=== PATIENT | female | born 1990 | race American Indian/Alaskan Native ===

== ENCOUNTER 2017-10-08 05:42 | Emergency (ER) | payer MEDICAID ==
[2017-10-08 07:38] VITALS: BP 145/79
[2017-10-08 08:22] LABS: Bilirubin,Urine NEG (Negative); Blood,Urine LG (Negative); Calcium Oxalate Crystals,Urine 1+; Color,Urine Yellow (Yellow); Mucus,Urine FEW /HPF; Protein,Urine <15 mg/dL mg/dL (Negative); Urobilinogen,Urine < 2.0 mg/dL (<2.0)
[2017-10-08 08:25] LABS: RBC,Urine > 182.0 /HPF (0.0-6.0)
[2017-10-08 08:25] LABS: Basophils # (Auto) 0.1 K/mm3 (0.0-0.1); Basophils % (Auto) 0.8 % (0.0-1.8); Eosinophils % (Auto) 0.5 % (0.0-4.3); Hematocrit 40.8 % (30.3-42.9); Lymphocytes # (Auto) 1.4 K/mm3 (1.2-5.4); Lymphocytes % (Auto) 17.9 % (13.4-35.0); Mean Corpuscular HGB Conc 32 % (30-34); Mean Corpuscular Hemoglobin 28 pg (28-32); Mean Corpuscular Volume 89 fl (79-97); Monocytes # (Auto) 0.4 K/mm3 (0.0-0.8); Monocytes % (Auto) 5.4 % (0.0-7.3); Platelet Count 232 K/mm3 (140-440); Red Blood Count 4.58 M/mm3 (3.65-5.03)
--- NOTE | 2017-10-08 10:37 | Emergency Department Report ---
ED Female HPI - General Chief complaint: Vaginal Bleeding Stated complaint: VAG BLEEDING; 6WKS GEST Time Seen by Provider: 10/08/17 08:42 Source: patient Mode of arrival: Ambulatory Limitations: No Limitations - History of Present Illness Initial comments: This is a 26-year-old -[place] female who presents with abdominal cramping and vaginal bleeding and/or for 2 days. Sk[facility]. On last Monday she started spotting with some mild cramping. Yesterday cramping increase and she saw a large amount of clots pass. This morning she saw a large clot on pain and decided to come in for evaluation. Patient reports pain is in lower pelvic region and lower back which is a cramping sensation. Pain is intermittent and 4-10 on pain scale. Patient denies fever, chest pain, shortness of breath, frequency, urgency, and dysuria. MD Complaint: vaginal bleeding, pelvic pain -: days(s) (2 days) Location: suprapubic Radiation: L flank, R flank Severity: mild Severity scale (0 -10): 4 Quality: cramping Consistency: intermittent Improves with: none Worsens with: none Are you Now?: Yes Last Menstrual Period: 08/22/17 EDC: 05/29/18 Associated Symptoms: vaginal bleeding, abdominal pain. denies: vaginal discharge, nausea/vomiting, fever/chills, headaches, loss of appetite, dysuria, hematuria, rash, seizure, shortness of breath, syncope, weakness - Related Data Sexually active: Yes : 1 Para: 0 A: 0 Previous Rx's Medication Instructions Recorded Last Taken Type Acetaminophen [Non-Aspirin Extra 500 mg PO Q6H PRN #20 tablet 10/08/17 Unknown Rx Strength] Allergies Allergy/AdvReac Type Severity Reaction Status Date / Time No Known Allergies Allergy Unverified 10/08/17 07:34 ED Review of Systems ROS: Stated complaint: VAG BLEEDING; 6WKS GEST Other details as noted in HPI Constitutional: denies: chills, fever Respiratory: denies: cough, shortness of breath, wheezing Cardiovascular: denies: chest pain, palpitations Gastrointestinal: abdominal pain (lower abdominal cramping). denies: nausea, vomiting, diarrhea Genitourinary: other (vaginal bleeding during ). denies: urgency, dysuria, frequency, discharge Neurological: denies: headache, weakness, numbness, paresthesias Psychiatric: denies: anxiety, depression ED Past Medical Hx - Past Medical History Previous Medical History?: No - Surgical History Past Surgical History?: No - Social History Smoking Status: Never Smoker Substance Use Type: None - Medications Home Medications: Home Medications Medication Instructions Recorded Confirmed Last Taken Type Acetaminophen [Non-Aspirin Extra 500 mg PO Q6H PRN #20 tablet 10/08/17 Unknown Rx Strength] ED Physical Exam - General Limitations: No Limitations General appearance: alert, in no apparent distress - Respiratory Respiratory exam: Present: normal lung sounds bilaterally. Absent: respiratory distress - Cardiovascular Cardiovascular Exam: Present: regular rate, normal rhythm, normal heart sounds. Absent: systolic murmur, diastolic murmur, rubs, gallop - GI/Abdominal GI/Abdominal exam: Present: soft, normal bowel sounds. Absent: distended, tenderness, guarding, rebound, rigid, organomegaly, mass, bruit - Back Exam Back exam: Present: normal inspection. Absent: CVA tenderness (R), CVA tenderness (L) - Neurological Exam Neurological exam: Present: alert, oriented X3 - Psychiatric Psychiatric exam: Present: normal affect, normal mood - Skin Skin exam: Present: warm, dry, intact, normal color. Absent: rash ED Course Vital Signs 10/08/17 07:34 Temperature 98.7 F Pulse Rate 95 H Respiratory 18 Rate Blood Pressure 145/79 O2 Sat by Pulse 100 Oximetry ED Medical Decision Making - Lab Data Result diagrams: 10/08/17 08:03 - Radiology Data Radiology results: report reviewed TRANSABDOMINAL AND TRANSVAGINAL OBSTETRICAL ULTRASOUND:10/08/17 05:42:00 CLINICAL: Positive test, pain and vaginal bleeding. FINDINGS: Transabdominal and transvaginal ultrasound demonstrated an enlarged fibroid uterus with no intrauterine gestational sac or fetus. Cervix is closed. The uterine stripe measures 9.0 mm in AP thickness. An anterior intramural fibroid in the uterine body measures 3 cm and a right intramural uterine body fibroid measures 8.9 x 7.5 x 6.6 cm. No adnexal mass or free fluid. Normal ovaries are well imaged on the transabdominal scan. The right ovary measured 4.5 x 1.4 x 3.6cm. The left ovary measured 3.6 x 1.5 x 2.8cm. IMPRESSION: No intrauterine or extrauterine identified. Suspect intrauterine AB with minimal retained products. Large uterine fibroids. - Medical Decision Making This is a 26-year-old female who presents with vaginal bleeding and abdominal cramping for 2 days. Patient is 6 weeks gestation. Patient is stable and was examined by me. Vitals normal. Obtained a type and screen, CBC, serum hCG quant , & UA. HCG elevated, urinalysis trace leukocytes and blood. OB transvaginal ultrasound obtained and read by radiologist. No intrauterine or extrauterine identified. Suspect intrauterine AB with minimal retained products. Large uterine fibroids. Review results with patient and her shortness of follow with [facility] in the next 2-3 days. No further questions noted by the patient. Discharged home in stable condition. Critical care attestation.: If time is entered above; I have spent that time in minutes in the direct care of this critically ill patient, excluding procedure time. ED Disposition Clinical Impression: Vaginal bleeding in patient at less than 20 weeks gestation, Spontaneous miscarriage Disposition: TO HOME OR SELFCARE Is pt being admited?: No Does the pt Need Aspirin: No Condition: Stable Instructions: Spontaneous Miscarriage (ED) Additional Instructions: Take Tylenol every 6 hours as needed for pain. Follow-up with [facility] in 2-3 days. Prescriptions: Acetaminophen [Non-Aspirin Extra Strength] 500 mg PO Q6H PRN #20 tablet PRN Reason: Pain Referrals: [facility] [Provider Group] - 3-5 Days [facility] [Provider Group] - 3-5 Days Time of Disposition: 11:49 Print Language: MALAGASY
--- NOTE | 2017-10-08 11:28 | Ultrasound Report ---
TRANSABDOMINAL AND TRANSVAGINAL OBSTETRICAL ULTRASOUND:10/08/17 05:42:00 CLINICAL: Positive test, pain and vaginal bleeding. FINDINGS: Transabdominal and transvaginal ultrasound demonstrated an enlarged fibroid uterus with no intrauterine gestational sac or fetus. Cervix is closed. The uterine stripe measures 9.0 mm in AP thickness. An anterior intramural fibroid in the uterine body measures 3 cm and a right intramural uterine body fibroid measures 8.9 x 7.5 x 6.6 cm. No adnexal mass or free fluid. Normal ovaries are well imaged on the transabdominal scan. The right ovary measured 4.5 x 1.4 x 3.6cm. The left ovary measured 3.6 x 1.5 x 2.8cm. IMPRESSION: No intrauterine or extrauterine identified. Suspect intrauterine AB with minimal retained products. Large uterine fibroids.
== END 2017-10-08 12:02 | disposition home or self-care (01) ==
LOC: ED 05:42
DX: O03.9 Complete or unspecified spontaneous abortion without complication (principal); Z3A.01 Less than 8 weeks gestation of pregnancy
CPT/HCPCS: 36415; 76801; 76817; 81001; 84702; 85025; 86850; 86900; 86901

== ENCOUNTER 2018-08-07 17:50 | Emergency (ER) | payer OTHER ==
[2018-08-07] MEDS ORDERED: ZOFRAN ODT PO ONE (18:04)
--- NOTE | 2018-08-07 18:05 | Emergency Department Report ---
Chief Complaint: Nausea/Vomiting/Diarrhea Stated Complaint: 7WKS /VOMITING Time Seen by Provider: 08/07/18 18:02 - HPI History of Present Illness: 06/16 S SIDE MEDICAL BUT NO MD NAUSEA/VOMITING NO BLEEDING OR DC MISCARRIAGE LAST YEAR PMH FIBROIDS RX ZOFRAN NOT VOMITING IN TRIAGE MSE COMPLETED MSE screening note: Focused history and physical exam performed. Due to findings the following was ordered: ED Disposition for MSE Condition: Stable
[2018-08-07 19:11] LABS: Hematocrit 42.6 % (30.3-42.9); Hemoglobin 14.2 gm/dl (10.1-14.3); Mean Corpuscular HGB Conc 33 % (30-34); Mean Corpuscular Volume 88 fl (79-97); Platelet Count 292 K/mm3 (140-440); Red Blood Count 4.82 M/mm3 (3.65-5.03); Red Cell Distribution Width 13.3 % (13.2-15.2)
[2018-08-07 19:15] LABS: HCG Qualitative,Urine Positive (Negative)
[2018-08-07 19:20] LABS: Bacteria,Urine 1+ /HPF (Negative); Bilirubin,Urine NEG (Negative); Blood,Urine NEG (Negative); Color,Urine Yellow (Yellow); Mucus,Urine FEW /HPF; Urobilinogen,Urine < 2.0 mg/dL (<2.0)
[2018-08-07 19:25] LABS: BUN/Creatinine Ratio 8; Blood Urea Nitrogen 4 mg/dL (7-17); Calcium 10.3 mg/dL (8.4-10.2); Hemolysis Index 9
[2018-08-07 21:27] VITALS: BP 134/115
== END 2018-08-07 22:27 | disposition left against medical advice (07) ==
LOC: ED 17:50
DX: O21.8 Other vomiting complicating pregnancy (principal); Z53.21 Procedure and treatment not carried out due to patient leaving prior to being seen by health care provider
CPT/HCPCS: 36415; 80048; 81001; 81025; 84702; 85027

== ENCOUNTER 2019-03-17 17:58 | Outpatient (CLI) | payer MEDICAID ==
[2019-03-17 18:50] VITALS: BP 116/76
== END 2019-03-17 19:00 | disposition home or self-care (01) ==
LOC: TRG 17:58
PROVIDERS: ATTEND Obstetrics & Gynecology
DX: O47.1 False labor at or after 37 completed weeks of gestation (principal); Z3A.39 39 weeks gestation of pregnancy

== ENCOUNTER 2019-03-26 14:09 | Inpatient (IN) | payer MEDICAID ==
[2019-03-26 16:28] LABS: Basophils # (Auto) 0.1 K/mm3 (0.0-0.1); Basophils % (Auto) 1.2 % (0.0-1.8); Eosinophils % (Auto) 0.3 % (0.0-4.3); Hematocrit 38.4 % (30.3-42.9); Hemoglobin 12.7 gm/dl (10.1-14.3); Lymphocytes # (Auto) 1.2 K/mm3 (1.2-5.4); Lymphocytes % (Auto) 17.5 % (13.4-35.0); Mean Corpuscular HGB Conc 33 % (30-34); Mean Corpuscular Volume 92 fl (79-97); Monocytes # (Auto) 0.5 K/mm3 (0.0-0.8); Monocytes % (Auto) 7.3 % (0.0-7.3); Red Cell Distribution Width 13.6 % (13.2-15.2)
[2019-03-26 16:35] LABS: Platelet Count 195 K/mm3 (140-440)
[2019-03-26] MEDS ORDERED: MINERAL OIL 30 ML ORAL LIQD PO PRN (17:50)
[2019-03-26] MEDS ORDERED: BUTORPHANOL 2 MG/1 ML INJ IV PRN (17:50)
[2019-03-26] MEDS ORDERED: AMPICILLIN/NS 2 GM/100 ML 2 GM/100 ML BAG IV ONE (17:50)
[2019-03-26] MEDS ORDERED: fentaNYL 100 MCG/2 ML INJ IV PRN (17:50)
[2019-03-26] MEDS ORDERED: TERBUTALINE 1 MG/1 ML INJ SUB-Q PRN (17:50)
[2019-03-26] MEDS ORDERED: ePHEDrine SULFATE 50 MG/1 ML INJ IV PRN (17:50)
[2019-03-26] MEDS ORDERED: TERBUTALINE 1 MG/1 ML INJ IVP PRN (17:50)
[2019-03-26] MEDS ORDERED: LACTATED RINGERS 1,000 ML IV SCH (18:00)
[2019-03-26] MEDS ORDERED: OXYTOCIN DRIP 30 UNITS/500 ML BAG IV SCH (18:00)
[2019-03-26] MEDS ORDERED: SODIUM CHLORIDE 0.9% IRR 1,500 ML BOTTLE IR ONE (18:20)
[2019-03-26] MEDS ORDERED: WATER FOR IRRIG STERILE 1,500 ML BOTTLE IR ONE (18:20)
[2019-03-26] MEDS ORDERED: SUCCINYLCHOLINE CHLORIDE 200 MG/10 ML INJ MDV ONE (18:25)
--- NOTE | 2019-03-26 18:25 | History and Physical Report ---
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 Social history: single - Obstetrical History Expected Date of Delivery: 03/25/19 Actual Gestation: 40 Week(s) 1 Day(s) : 2 Para: 0 Hx # Term Pregnancies: 0 Number of Pregnancies: 0 Spontaneous Abortions: 1 Induced : 0 Number of Living Children: 0 Medications and Allergies Allergies Allergy/AdvReac Type Severity Reaction Status Date / Time No Known Allergies Allergy Verified 08/07/18 17:54 Home Medications Medication Instructions Recorded Confirmed Last Taken Type Acetaminophen [Non-Aspirin Extra 500 mg PO Q6H PRN #20 tablet 10/08/17 Unknown Rx Strength] Review of Systems All systems: negative - Vital Signs Vital signs: Vital Signs Pulse BP 93 H 124/85 03/26/19 14:49 03/26/19 14:49 Temp Pulse Resp BP Pulse Ox 98.1 F 93 H 16 124/85 03/26/19 15:00 03/26/19 14:49 03/26/19 15:00 03/26/19 14:49 - Physical Exam Uterus: Positive: enlarged - Obstetrical Cervical Dilatation: 1 (per nurse) station: -3 Uterine Contraction Pattern: Irregular Uterine Contraction Intensity: Mild Results Result Diagrams: 03/26/19 15:30 Abnormal lab results 03/26/19 Range/Units 15:30 Seg Neutrophils % 73.7 H (40.0-70.0) % All other labs normal. Assessment and Plan - Patient Problems (1) SROM (spontaneous rupture of membranes) Current Visit: Yes Status: Acute Plan to address problem: Ck temps per hospital protocal Cervidil Pain meds/Epidural prn Expectant mtg (2) 40 weeks gestation of Current Visit: Yes Status: Acute Plan to address problem: Admit to &D Cervidil Anticipate (3) GBS (group B Streptococcus carrier), +RV culture, currently Current Visit: Yes Status: Acute Plan to address problem: GBS prophylaxis per protocal
[2019-03-26] MEDS ORDERED: PROPOFOL 200 MG/20 ML VIAL IV ONE ×3 (18:26→19:08)
[2019-03-26] MEDS ORDERED: KETAMINE/STERILE WATER 50 MG/ML SYRINGE ONE (18:26)
[2019-03-26] MEDS ORDERED: HYDROmorphone 1 MG/1 ML INJ ONE ×2 (18:35)
[2019-03-26] MEDS ORDERED: ONDANSETRON 4 MG/2 ML INJ ONE (18:43)
[2019-03-26] MEDS ORDERED: dexAMETHasone 20 MG/5 ML VIAL ONE (18:43)
[2019-03-26] MEDS ORDERED: OXYTOCIN 10 UNIT/1 ML INJ ONE (18:45)
[2019-03-26] MEDS ORDERED: ceFAZolin 1 GM VIAL ONE (18:48)
[2019-03-26] MEDS ORDERED: LIDOCAINE (2%) 20 MG/1 ML VIAL 20 ML MDV INFILTRATI ONE (18:50)
[2019-03-26] MEDS ORDERED: LACTATED RINGERS 2,000 ML ONE (18:57)
[2019-03-26] MEDS ORDERED: DINOPROSTONE 10 MG VAG SUPP VG ONE (19:00)
[2019-03-26] MEDS ORDERED: OXYTOCIN 20 UNIT/1000ML DRIP 20 UNITS/1,000 ML BAG IV SCH ×2 (19:00→20:00)
--- NOTE | 2019-03-26 19:05 | Operative Report ---
Operative Report Operative Report: Date of procedure: 03/26/2019 Pre-operative diagnosis: 1. Intrauterine at 40 1/7 weeks 2. Uteri ne fibroids 3. Non-Reassuring surveillance 4. Cord prolapse Post-operative diagnosis: Same Procedure name(s): STAT Primary low transverse section Surgeon: Fernando Kapoor MD Computer Bookkeeper: Mildred Kapoor MD Anesthesia: General endotracheal intubation by Yaz Heredia CRNA EBL: 400 mL's Findings: A 2960 gm female Apgars 1 at 1 minute 7 at 5 minutes. Prolapsed cord 1. Enlarged uterus with uterine fibroids. Normal tubes and ovaries bilaterally. Procedure: After the patient was prepped and draped in usual sterile fashion, and after General anesthesia was obtained, the skin knife was used to make a transverse skin incision. The incision was incised down to layer of the fascia, which was nicked in the midline and extended laterally using the knife. The rectus muscles were bluntly in the midline, and the peritoneum was entered under direct visualization. The peritoneal incision was bluntly extended, and the uterus was scored in a curvilinear linear fashion, entered in the midline revealing clear amniotic fluid. The 's head was delivered onto the surgical field, followed by the rest of the 's body, and the oropharynx and nasopharynx were bulb suctioned. The cord was doubly clamped and cut and the infant was handed to the awaiting respiratory team. Cord gas and cord blood was then obtained. The placenta was manually removed from the uterus, but the uterus could not be removed from its normal anatomical position due to large uterine fibroids. After gentle uterine lavage, the incision was inspected and found to be without extensions. It was then closed in 2 layers using 0 Vicryl suture in a running interlocking fashion, the second layer imbricating the first. After good hemostasis was achieved, copious amounts or irrigation was performed, and the gutters were suctioned free of blood and blood clots. The peritoneum was re-approximated using 3-0 Vicryl suture in a running interlocking fashion, and then the rectus muscles were loosely re-approximated using 3-0 Vicryl suture in a [id number] configuration. The fascia was then re-approximated using 0 Vicryl suture in running interlocking fashion. The sub cutaneous layer was made hemostatic using Bovie cautery, and the skin edges re- approximated using 4-0 Vicryl suture in a sub-cuticular fashion. An abdominal X ray was obtained since the instrument count was not performed at the beginning of the case. Abdominal X Ray was Negative for [place], sponges or instruments. The patient tolerated the procedure well was transported to recovery in stable condition.
[2019-03-26] MEDS ORDERED: LANOLIN/ZINC/DIMETHICONE (LANSINOH) 7 GM TP PRN (19:09)
[2019-03-26] MEDS ORDERED: NALOXONE 0.4 MG/1 ML INJ IV PRN (19:09)
[2019-03-26] MEDS ORDERED: SIMETHICONE 80 MG CHEW TAB PO PRN (19:09)
[2019-03-26] MEDS ORDERED: ONDANSETRON 4 MG/2 ML INJ IV PRN ×2 (19:09→19:30)
[2019-03-26] MEDS ORDERED: WITCH HAZEL/ GLYCERIN PAD TP PRN (19:09)
[2019-03-26] MEDS ORDERED: PROMETHAZINE 25 MG RECT SUPP PR PRN (19:09)
[2019-03-26] MEDS ORDERED: KETOROLAC 30 MG/1 ML INJ IV PRN (19:09)
[2019-03-26] MEDS ORDERED: ACETAMINOPHEN 325 MG TAB PO PRN (19:09)
[2019-03-26] MEDS ORDERED: MORPHINE 2 MG/1 ML INJ IV PRN (19:09)
--- NOTE | 2019-03-26 19:18 | XRay Report ---
ABDOMEN 1 VIEW(S) INDICATION / CLINICAL INFORMATION: instrument count. COMPARISON: None available. FINDINGS: TUBES / LINES: None. BOWEL GAS PATTERN: No significant abnormality. FREE AIR / EXTRALUMINAL GAS: Enlarged uterus is seen with extraluminal air from the emergency C-secti on. ADDITIONAL FINDINGS: No needle, sponge or instrument is seen. IMPRESSION: 1. No significant postoperative abnormality. Signer Name: Jamie Martines MD Signed: 03/26/2019 7:13 PM Workstation Name: [id number]
[2019-03-26] MEDS ORDERED: HYDROmorphone 1 MG/1 ML INJ IV PRN ×2 (19:30)
--- NOTE | 2019-03-26 19:30 | Anesthesia Consultation ---
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 - Pulmonary Hx Smoking: No Hx Asthma: No Hx Respiratory Symptoms: No SOB: No COPD: No Home Oxygen Therapy: No Hx Pneumonia: No Hx Sleep Apnea: No - Cardiovascular System Hx Hypertension: No Hx Coronary Artery Disease: No Hx Heart Attack/AMI: No Hx Angina: No Hx Percutaneous Transluminal Coronary Angioplasty (PTCA): No Hx Cardia Arrhythmia: No Hx Pacemaker: No Hx Internal Defibrillator: No Hx Valvular Heart Disease: No Hx Heart Murmur: No Hx Peripheral Vascular Disease: No - Central Nervous System Hx Neuromuscular Disorder: No Hx Seizures: No CVA: No Hx Back Pain: No Hx Psychiatric Problems: No - Gastrointestinal Hx Ulcer: No Hx Gastroesophageal Reflux Disease: No - Endocrine Hx Renal Disease: No Hx End Stage Renal Disease: No Hx Cirrhosis: No Hx Insulin Dependent Diabetes: No Hx Non-Insulin Dependent Diabetes: No Hx Thyroid Disease: No Hx Hypothyroidism: No Hx Hyperthyroidism: No - Hematic Hx Anemia: Yes Hx Sickle Cell Disease: No - Other Systems Hx Alcohol Use: No Hx Substance Use: No Hx Cancer: No Hx Obesity: No
--- NOTE | 2019-03-26 19:31 | Anesthesia Day of Surgery ---
Anesthesia Day of Surgery - Day of Surgery Patient Examined: Yes Patient H&P Reviewed: Yes Patient is NPO: Yes Beta Blockers: No Cardiac Clearance: No Pulmonary Clearance: No Maikol's Test: N/A
--- NOTE | 2019-03-26 19:32 | Post Anesthesia Evaluation ---
- Post Anesthesia Evaluation Patient Participated: Yes Airway Patent: Yes Stable Respiratory Function: Yes Nausea/Vomiting: No Temp > 96.8F: Yes Pain Manageable: Yes Adequeate Hydration: Yes Anesthesia Complications: No Block Receding Appropriately: Not Applicable Patient on Ventilator: No
[2019-03-26] MEDS ORDERED: D5W/LACTATED RINGERS 1,000 ML IV SCH (20:00)
--- NOTE | 2019-03-26 20:00 | Progress Note ---
Assessment and Plan - Patient Problems (1) SROM (spontaneous rupture of membranes) Current Visit: Yes Status: Acute (2) 40 weeks gestation of Current Visit: Yes Status: Acute (3) GBS (group B Streptococcus carrier), +RV culture, currently Current Visit: Yes Status: Acute Subjective - Subjective Date of service: 03/26/19 Interval history: 28 y/o BF presents at 40.1 wks with gross SROM @ 1pm today cl fluid PNC initiated on 09/13/18 @ [facility] Maternal hx yields pos GBS, Anemia, Alpha thalassemia carrier, congenital malformation of uterus, Leiomyoma of uterus, and benign tumor of corpus uteri Objective - Vital Signs Vital Signs: Vital Signs - 12hr 03/26/19 03/26/19 03/26/19 14:49 15:00 19:16 Temperature 98.1 F 97.5 F L Pulse Rate 93 H 86 Respiratory 16 19 Rate Blood Pressure 124/85 92/52 O2 Sat by Pulse 98 Oximetry 03/26/19 03/26/19 03/26/19 19:20 19:25 19:30 Temperature Pulse Rate 84 81 73 Respiratory 18 20 18 Rate Blood Pressure 100/65 97/64 107/74 O2 Sat by Pulse 98 99 99 Oximetry 03/26/19 19:45 Temperature Pulse Rate 62 Respiratory 17 Rate Blood Pressure 113/66 O2 Sat by Pulse 99 Oximetry - Labs Labs: Abnormal Labs 03/26/19 03/26/19 03/26/19 15:30 19:07 19:16 Seg Neutrophils % 73.7 H POC ABG pH 7.458 H POC ABG pCO2 30.8 L 32.9 L POC ABG pO2 159 H 138 H Laboratory Results - last 24 hr 03/26/19 03/26/19 03/26/19 15:30 15:30 19:07 WBC 6.7 RBC 4.20 Hgb 12.7 Hct 38.4 MCV 92 MCH 30 MCHC 33 RDW 13.6 Plt Count 195 Lymph % (Auto) 17.5 [place] % (Auto) 7.3 Eos % (Auto) 0.3 Baso % (Auto) 1.2 Lymph # 1.2 [place] # 0.5 Eos # 0.0 Baso # 0.1 Seg Neutrophils % 73.7 H Seg Neutrophils # 5.0 POC ABG pH 7.458 H POC ABG pCO2 30.8 L POC ABG pO2 159 H POC ABG HCO3 21.8 POC ABG Total CO2 23 POC ABG O2 Sat 100 POC ABG Base Excess -2 FiO2 21 Blood Type O POSITIVE Antibody Screen Negative 03/26/19 19:16 WBC RBC Hgb Hct MCV MCH MCHC RDW Plt Count Lymph % (Auto) [place] % (Auto) Eos % (Auto) Baso % (Auto) Lymph # [place] # Eos # Baso # Seg Neutrophils % Seg Neutrophils # POC ABG pH 7.433 POC ABG pCO2 32.9 L POC ABG pO2 138 H POC ABG HCO3 22.0 POC ABG Total CO2 23 POC ABG O2 Sat 99 POC ABG Base Excess -2 FiO2 2 Blood Type Antibody Screen
--- NOTE | 2019-03-26 20:36 | Progress Note ---
Assessment and Plan - Patient Problems (1) SROM (spontaneous rupture of membranes) Current Visit: Yes Status: Acute (2) 40 weeks gestation of Current Visit: Yes Status: Acute (3) GBS (group B Streptococcus carrier), +RV culture, currently Current Visit: Yes Status: Acute Subjective - Subjective Date of service: 03/26/19 (18:13) Principal diagnosis: IUP@40.1 wks cord prolaspe Interval history: Called to pt's bathroom by pt to assess her situation. Upon arrival pt was standing in the bathroom. The pt pulled her gown up and asked what was hanging from between her vagina. Disaster Director noticed a long loop of the fetus's umbilical cord hanging from the pt's vagina.The emergency called david was signaled for help. head and cord was supported while pt was assisted to bed and taken to OR stat. Objective - Vital Signs Vital Signs: Vital Signs - 12hr 03/26/19 03/26/19 03/26/19 14:49 15:00 19:16 Temperature 98.1 F 97.5 F L Pulse Rate 93 H 86 Respiratory 16 19 Rate Blood Pressure 124/85 92/52 O2 Sat by Pulse 98 Oximetry 03/26/19 03/26/19 03/26/19 19:20 19:25 19:30 Temperature Pulse Rate 84 81 73 Respiratory 18 20 18 Rate Blood Pressure 100/65 97/64 107/74 O2 Sat by Pulse 98 99 99 Oximetry 03/26/19 03/26/19 19:45 20:00 Temperature Pulse Rate 62 62 Respiratory 17 21 Rate Blood Pressure 113/66 119/74 O2 Sat by Pulse 99 99 Oximetry - Labs Labs: Abnormal Labs 03/26/19 03/26/19 03/26/19 15:30 19:07 19:16 Seg Neutrophils % 73.7 H POC ABG pH 7.458 H POC ABG pCO2 30.8 L 32.9 L POC ABG pO2 159 H 138 H Laboratory Results - last 24 hr 03/26/19 03/26/19 03/26/19 15:30 15:30 19:07 WBC 6.7 RBC 4.20 Hgb 12.7 Hct 38.4 MCV 92 MCH 30 MCHC 33 RDW 13.6 Plt Count 195 Lymph % (Auto) 17.5 [place] % (Auto) 7.3 Eos % (Auto) 0.3 Baso % (Auto) 1.2 Lymph # 1.2 [place] # 0.5 Eos # 0.0 Baso # 0.1 Seg Neutrophils % 73.7 H Seg Neutrophils # 5.0 POC ABG pH 7.458 H POC ABG pCO2 30.8 L POC ABG pO2 159 H POC ABG HCO3 21.8 POC ABG Total CO2 23 POC ABG O2 Sat 100 POC ABG Base Excess -2 FiO2 21 Blood Type O POSITIVE Antibody Screen Negative 03/26/19 19:16 WBC RBC Hgb Hct MCV MCH MCHC RDW Plt Count Lymph % (Auto) [place] % (Auto) Eos % (Auto) Baso % (Auto) Lymph # [place] # Eos # Baso # Seg Neutrophils % Seg Neutrophils # POC ABG pH 7.433 POC ABG pCO2 32.9 L POC ABG pO2 138 H POC ABG HCO3 22.0 POC ABG Total CO2 23 POC ABG O2 Sat 99 POC ABG Base Excess -2 FiO2 2 Blood Type Antibody Screen
[2019-03-26] MEDS ORDERED: AMPICILLIN/NS 1 GM/50 ML 1 GM/50 ML BAG IV SCH (22:00)
[2019-03-26] MEDS: ceFAZolin/NS 1 GM/50 ML 1 GM/50 ML BAG IV SCH (22:05)
[2019-03-27] MEDS: HYDROcodone/ACETAMINOPHEN 5-325 MG TAB PO PRN (04:40)
[2019-03-27] MEDS: ceFAZolin/NS 1 GM/50 ML 1 GM/50 ML BAG IV SCH (05:58)
[2019-03-27 08:23] LABS: Hematocrit 30.5 % (30.3-42.9); Hemoglobin 10.2 gm/dl (10.1-14.3)
[2019-03-27] MEDS: oxyCODONE /ACETAMINOPHEN 5-325MG TAB PO PRN ×3 (09:11→22:17)
--- NOTE | 2019-03-27 11:29 | Progress Note ---
Assessment and Plan - Patient Problems (1) Status post Onset Date: 03/27/19 Current Visit: Yes Status: Resolved Plan to address problem: A: S/P Primary C Section - POD #1 Doing well Asymptomatic anemia - stable P: Continue RPOC Anticipate discharge in 24-48hrs (2) Acute blood loss anemia Onset Date: 03/27/19 Current Visit: Yes Status: Resolved Subjective - Subjective Date of service: 03/27/19 Principal diagnosis: s/p Primary C Section - POD #1 Interval history: Pt is feeling well without complaints. Bleeding improved. She is tolerating a liquid diet without nausea or vomiting. Patient reports: appetite normal, voiding normally, pain well controlled, ambulating normally, no dizzy ambulation, no flatus, no nauseated [place]: doing well, bottle feeding Objective - Vital Signs Latest vital signs: Vital Signs Temp Pulse Resp BP Pulse Ox 03/27/19 09:11 20 03/27/19 08:10 97.6 F 75 18 116/75 100 03/27/19 05:08 98.2 F 74 18 116/80 97 03/27/19 00:38 97.7 F 79 20 129/84 96 03/26/19 21:12 99.2 F 03/26/19 21:00 95.9 F L 03/26/19 20:45 73 121/86 98 03/26/19 20:15 61 21 123/80 99 03/26/19 20:00 62 21 119/74 99 03/26/19 19:45 62 17 113/66 99 03/26/19 19:30 73 18 107/74 99 03/26/19 19:25 81 20 97/64 99 03/26/19 19:20 84 18 100/65 98 03/26/19 19:16 97.5 F L 86 19 92/52 98 03/26/19 15:00 98.1 F 16 03/26/19 14:49 93 H 124/85 Intake and Output 03/26/19 03/27/19 03/27/19 22:59 06:59 14:59 Intake Total 1250 240 240 Output Total 355 750 200 Balance 895 -510 40 Intake: IV 1250 ANCEF/NS 1 GM/50 ML 1 gm 50 In 50 ml @ 100 mls/hr IV Q8H ANN MARIE Rx#:[id number] Intake, Free Water 240 240 Output: Urine 355 750 200 Indwelling Catheter 750 Uretheral (Luther) 25 Void 200 Other: Total, Output Amount 400 200 Weight 70.76 kg Estimated Blood Loss 400 - Exam Breasts: Present: deferred Abdomen: Present: normal appearance, soft Uterus: Present: normal, firm, fundal height below umbilicus Extremities: Present: normal Incision: Present: normal, dry, intact, dressed - Labs Labs: Abnormal lab results 03/26/19 03/26/19 03/26/19 Range/Units 15:30 19:07 19:16 Seg Neutrophils % 73.7 H (40.0-70.0) % POC ABG pH 7.458 H (7.35-7.45) POC ABG pCO2 30.8 L 32.9 L (35-45) POC ABG pO2 159 H 138 H (80-105) Laboratory Tests 03/26/19 03/26/19 03/26/19 15:30 15:30 19:07 WBC 6.7 RBC 4.20 Hgb 12.7 Hct 38.4 MCV 92 MCH 30 MCHC 33 RDW 13.6 Plt Count 195 Lymph % (Auto) 17.5 [place] % (Auto) 7.3 Eos % (Auto) 0.3 Baso % (Auto) 1.2 Lymph # 1.2 [place] # 0.5 Eos # 0.0 Baso # 0.1 Seg Neutrophils % 73.7 H Seg Neutrophils # 5.0 POC ABG pH 7.458 H POC ABG pCO2 30.8 L POC ABG pO2 159 H POC ABG HCO3 21.8 POC ABG Total CO2 23 POC ABG O2 Sat 100 POC ABG Base Excess -2 FiO2 21 Blood Type O POSITIVE Antibody Screen Negative 03/26/19 03/27/19 19:16 07:51 WBC RBC Hgb 10.2 Hct 30.5 D MCV MCH MCHC RDW Plt Count Lymph % (Auto) [place] % (Auto) Eos % (Auto) Baso % (Auto) Lymph # [place] # Eos # Baso # Seg Neutrophils % Seg Neutrophils # POC ABG pH 7.433 POC ABG pCO2 32.9 L POC ABG pO2 138 H POC ABG HCO3 22.0 POC ABG Total CO2 23 POC ABG O2 Sat 99 POC ABG Base Excess -2 FiO2 2 Blood Type Antibody Screen
[2019-03-27] MEDS ORDERED: TETANUS,DIPH,PERTUSS(ACELL) VACCINE 0.5 ML SYRINGE IM ONE (19:11)
[2019-03-27] MEDS ORDERED: MEASLES, MUMPS & RUBELLA 12,500 UNIT/0.5 ML VACCINE SUB-Q ONE (19:11)
[2019-03-27] MEDS: IBUPROFEN 800 MG TAB PO PRN (20:16)
[2019-03-28] MEDS: HYDROcodone/ACETAMINOPHEN 5-325 MG TAB PO PRN ×2 (09:00→16:26)
[2019-03-28] MEDS: PRENATAL VIT27-FE FUMARATE-FOLIC ACID VIT TAB PO SCH (09:11)
[2019-03-28] MEDS: FERROUS SULFATE 325 MG TAB PO SCH (09:11)
[2019-03-28] MEDS: IBUPROFEN 800 MG TAB PO PRN ×2 (09:12→20:15)
[2019-03-28] MEDS: MAGNESIUM HYDROXIDE (MOM) ORAL LIQD UDC PO PRN ×2 (09:13→20:17)
--- NOTE | 2019-03-28 09:23 | Progress Note ---
Assessment and Plan - Patient Problems (1) Status post Onset Date: 03/27/19 Current Visit: Yes Status: Resolved Plan to address problem: A: S/P Primary C Section - POD #2 Doing well Uterine fibroids Asymptomatic anemia - stable P: Continue RPOC Encourage ambulation Anticipate discharge in 24-48hrs (2) Acute blood loss anemia Onset Date: 03/27/19 Current Visit: Yes Status: Resolved Subjective - Subjective Date of service: 03/28/19 Principal diagnosis: s/p Primary C Section - POD #2 Interval history: Pt is feeling well without complaints. She is tolerating a liquid diet without nausea or vomiting. Patient reports: appetite normal, voiding normally, pain well controlled, no dizzy ambulation, no flatus, no ambulating normally, no nauseated : doing well, bottle feeding Objective - Vital Signs Latest vital signs: Vital Signs Temp Resp BP 03/28/19 09:12 20 03/28/19 01:38 97.7 F 18 106/71 03/27/19 15:15 20 Intake and Output 03/27/19 03/28/19 03/28/19 22:59 06:59 14:59 Intake Total 240 360 Balance 240 360 Intake: Oral 240 360 Other: Total, Intake Amount 240 120 # Voids Void 1 1 - Exam Breasts: Present: deferred Abdomen: Present: normal appearance, soft Uterus: Present: normal, firm, fundal height above umbilicus Extremities: Present: normal Incision: Present: normal, dry, intact
[2019-03-29] MEDS: HYDROcodone/ACETAMINOPHEN 5-325 MG TAB PO PRN ×2 (00:35→09:46)
[2019-03-29] MEDS: IBUPROFEN 800 MG TAB PO PRN (05:17)
--- NOTE | 2019-03-29 09:30 | Progress Note ---
Assessment and Plan - Patient Problems (1) Status post Onset Date: 03/27/19 Current Visit: Yes Status: Resolved Plan to address problem: A: S/P Primary C Section - POD #3 Doing well Uterine fibroids Asymptomatic anemia - stable P: May go home today. (2) Acute blood loss anemia Onset Date: 03/27/19 Current Visit: Yes Status: Resolved Subjective - Subjective Date of service: 03/29/19 Principal diagnosis: s/p Primary C Section - POD #3 Interval history: Pt is feeling well without complaints. She is tolerating a reg diet without nausea or vomiting, ambulating and voiding without difficulty. Patient reports: appetite normal, voiding normally, pain well controlled, flatus, ambulating normally, no dizzy ambulation, no nauseated : doing well, nursing well, bottle feeding Objective - Vital Signs Latest vital signs: Vital Signs Temp Pulse Resp BP BP Pulse Ox 03/29/19 08:15 97.9 F 77 18 105/74 03/29/19 00:35 18 03/29/19 00:13 98.7 F 87 18 107/76 96 03/28/19 16:26 20 03/28/19 15:38 98.3 F 94 H 18 113/76 100 Intake and Output 03/28/19 03/29/19 03/29/19 22:59 06:59 14:59 Intake Total 1200 240 480 Balance 1200 240 480 Intake: Oral 600 240 480 Intake, Free Water 600 Other: Total, Intake Amount 240 120 480 # Voids Void 1 1 - Exam Breasts: Present: deferred Abdomen: Present: normal appearance, soft Uterus: Present: normal, firm, fundal height above umbilicus Extremities: Present: normal Incision: Present: normal, dry, intact
[2019-03-29] MEDS: FERROUS SULFATE 325 MG TAB PO SCH (09:46)
[2019-03-29] MEDS: PRENATAL VIT27-FE FUMARATE-FOLIC ACID VIT TAB PO SCH (09:46)
--- NOTE | 2019-03-29 10:04 | Discharge Summary ---
Providers - Providers Date of Admission: 03/26/19 14:10 Date of discharge: 03/29/19 Attending physician: PARAM VACA Primary care physician: PARAM VACA Hospitalization Reason for admission: rupture of membranes, IUP at term Delivery: Procedure: section, primary low transverse Episiotomy: none Laceration: none Incision: normal, dry, intact Other procedures: none complications: none Discharge diagnosis: IUP at term delivered baby: female Hospital course: Pt is a 28yo BF EDC 03/25/19; EGA 40 / weeks presented to L&D complaining of SROM followed by irregular contractions. She received care at [facility] since 12 weeks and co-managed by [facility] for uterine fibr oids, pyelectasis and alpha thalassemia trait. She was admitted for augmentation of labor but had a cord prolapse whilst using the bathroom, and thus underwent an uncomplicated STAT C Section. Post operative course was unremarkable, and by POD #3 she was tolerating a reg diet without nausea or vomiting, ambulating and voiding without difficulty. She was therefore discharged to home on POD #3 in stable condition. Condition at discharge: Good Disposition: DC-[id number] TO HOME OR SELFCARE - Discharge Diagnoses (1) Status post Status: Resolved (2) Acute blood loss anemia Status: Resolved Plan - Discharge Medications Prescriptions: Ferrous Sulfate [Feosol 325 MG tab] 325 mg PO BID #60 tablet Ibuprofen [Motrin 800 MG tab] 800 mg PO Q6H PRN #30 tablet PRN Reason: Pain, Mild (1-3) HYDROcodone/APAP 5-325 [[place] 5-325 mg TAB] 1 each PO Q6HR PRN #30 tablet PRN Reason: Pain, Moderate (4-6) Vit-Fe Fumar-FA [ Vitamin] 1 each PO QDAY #30 tablet - Provider Discharge Summary Activity: routine, no sex for 6 weeks, no heavy lifting 4 weeks, no strenuous exercise Diet: routine Instructions: routine Additional instructions: [] Smoking cessation referral if applicable(refer to patient education folder for contact #) [] Refer to [facility] Booklet Call your doctor immediately for: * Fever > 100.5 * Heavy vaginal bleeding ( >1 pad per hour) * Severe persistent headache * Shortness of breath * Reddened, hot, painful area to leg or breast * Drainage or odor from incision. * Keep incision clean and dry at all times and follow doctor's instructions regarding bathing/showering - Follow up plan Follow up: PARAM VACA MD [Primary Care Provider] - 14 Days MARIAN SWANSON CNM [Advanced Practice Nurse] - 14 Days
[2019-03-29 12:38] VITALS: BP 122/83
== END 2019-03-29 12:30 | disposition home or self-care (01) | DRG 765 ==
LOC: TRG 14:09 → LD 14:10 → OB 21:21
PROVIDERS: ADMIT Obstetrics & Gynecology; ATTEND Obstetrics & Gynecology
PROC: 10D00Z1 Extraction of Products of Conception, Low, Open Approach (ICD-10-PCS; principal; 2019-03-26)
PROC: 4A033R1 Measurement of Arterial Saturation, Peripheral, Percutaneous Approach (ICD-10-PCS; 2019-03-26)
PROC: 3E0234Z Introduction of Serum, Toxoid and Vaccine into Muscle, Percutaneous Approach (ICD-10-PCS; 2019-03-27)
PROC: 3E0134Z Introduction of Serum, Toxoid and Vaccine into Subcutaneous Tissue, Percutaneous Approach (ICD-10-PCS; 2019-03-27)
DX: O99.824 Streptococcus B carrier state complicating childbirth (principal); D62 Acute posthemorrhagic anemia; O99.02 Anemia complicating childbirth; D25.9 Leiomyoma of uterus, unspecified; O69.0XX0 Labor and delivery complicated by prolapse of cord, not applicable or unspecified; O42.92 Full-term premature rupture of membranes, unspecified as to length of time between rupture and onset of labor; O76 Abnormality in fetal heart rate and rhythm complicating labor and delivery; O34.13 Maternal care for benign tumor of corpus uteri, third trimester; Z3A.40 40 weeks gestation of pregnancy; Z37.0 Single live birth; Z23 Encounter for immunization
CPT/HCPCS: 36415; 74018; 82803; 85014; 85018; 85025; 86850; 86900; 86901; 88307; G0378; J0330; J0690; J1100; J1170; J1885; J2405; J2590; J2704; J7120; J7121